=== PATIENT | male | born 1970 | race Caucasian/White ===

== ENCOUNTER 2018-11-25 16:30 | Inpatient (IN) | payer BC ==
[~2018-11-25] VITALS: Ht 175.3 cm; Wt 91.2 kg
[~2018-11-25 16:30] MED LIST: CHANTIX1 EACH PO; ZESTRIL10 MG PO
[2018-11-25 16:46] VITALS: BP 187/114
[2018-11-25 17:03] LABS: ABSOLUTE BASOPHILS 0.1 thou/uL (0.0-0.2); ABSOLUTE EOSINOPHILS 0.1 thou/uL (0.0-0.7); ABSOLUTE LYMPHOCYTES 2.6 thou/uL (0.8-5.3); ABSOLUTE MONOCYTES 1.7 thou/uL (0.0-1.2); ABSOLUTE NEUTROPHILS 9.7 thou/uL (1.6-8.1); BASOPHILS 0.9 %; EOSINOPHILS 0.8 %; HEMATOCRIT 46.6 % (42.0-52.0); HEMOGLOBIN 16.1 gm/dL (14.0-18.0); LYMPHOCYTES 18.5 %; MCH 33.5 pg (26.0-34.0); MCHC 34.6 g/dL (28.0-37.0); MCV 96.7 fL (80.0-100.0); MPV 7.3 fl. (7.2-11.1); NUCLEATED RBCS 0 /100WBC; PLATELET COUNT* 246 thou/uL (150-400); POLYS 67.8 %; RBC 4.82 mil/uL (4.50-6.00); RDW-CV 13.5 % (10.5-14.5); WBC 14.3 thou/uL (4.0-11.0)
[2018-11-25 17:18] LABS: CALCIUM 9.3 mg/dL (8.5-10.1); CREATININE 1.4 mg/dL (0.6-1.3); POTASSIUM 3.5 mmol/L (3.5-5.1)
[2018-11-25 17:31] LABS: ALBUMIN 4.2 g/dL (3.4-5.0); TOTAL BILIRUBIN 0.4 mg/dL (<0.1-1.0); TOTAL PROTEIN 8.1 g/dL (6.4-8.2)
[2018-11-25 18:08] LABS: URINE BILIRUBIN NEGATIVE (Negative); URINE BLOOD 2+ (Negative); URINE CLARITY CLEAR; URINE COLOR YELLOW; URINE GLUCOSE-RANDOM NEGATIVE (Negative); URINE KETONES NEGATIVE (Negative); URINE LEUKOCYTES-REFLEX NEGATIVE (Negative); URINE NITRITE-REFLEX NEGATIVE (Negative); URINE PROTEIN NEGATIVE (Negative); URINE SPECIFIC GRAVITY 1.025 (1.005-1.030); URINE UROBILINOGEN 0.2 E.U./dl (0.2-1.0)
[2018-11-25 18:32] LABS: MUCUS None Seen strn/LPF (None Seen); SQUAMOUS 0-3 Few /LPF (0-3)
[2018-11-25 18:33] LABS: BACTERIA-REFLEX None Seen /HPF (None Seen); CASTS None Seen /LPF (None Seen); CRYSTALS None Seen /LPF (None Seen); URINE RBC 3-10 Few /HPF (0-2); URINE WBC-REFLEX None Seen /HPF (0-5)
[2018-11-25 20:33] VITALS: BP 149/98
[2018-11-25 21:00] VITALS: BP 139/79
[2018-11-26 04:13] LABS: MCH 33.6 pg (26.0-34.0); MCHC 34.4 g/dL (28.0-37.0); MCV 97.7 fL (80.0-100.0); MPV 7.9 fl. (7.2-11.1); RBC 4.2 mil/uL (4.50-6.00); RDW-CV 13.5 % (10.5-14.5); WBC 7.7 thou/uL (4.0-11.0)
[2018-11-26 04:34] LABS: CALCIUM 7.8 mg/dL (8.5-10.1); CREATININE 1.6 mg/dL (0.6-1.3); POTASSIUM 3.5 mmol/L (3.5-5.1)
[2018-11-26 04:48] LABS: HEMOGLOBIN 14.1 gm/dL (14.0-18.0)
[2018-11-26 08:00] VITALS: BP 138/78
[2018-11-26 17:37] VITALS: BP 126/75
[2018-11-26 20:45] VITALS: BP 157/87
[2018-11-27 04:21] LABS: CALCIUM 8.5 mg/dL (8.5-10.1); CREATININE 1.1 mg/dL (0.6-1.3); MAGNESIUM 2.4 mg/dL (1.8-2.4); POTASSIUM 4.1 mmol/L (3.5-5.1)
[2018-11-27] MEDS ORDERED: FLOMAX0.4 MG PO (07:45)
[2018-11-27] MEDS ORDERED: LEVSIN0.125 MG PO (07:45)
[2018-11-27] MEDS ORDERED: HYDROCODON-ACE1 EAC7 PO (07:45)
[2018-11-27 08:00] VITALS: BP 150/79
[2018-11-27] MEDS ORDERED: NORCO 5-325 TA1 EACH PO (10:34)
[2018-11-27 10:38] VITALS: BP 157/87
[2018-11-27 11:00] VITALS: BP 157/87
== END 2018-11-27 11:00 | disposition home or self-care (01) | DRG 683 ==
LOC: M.ERS 16:30 → M.3W 18:36 → M.ORTHSURG 18:36 → M.TBA-ER 18:36 → M.3W 21:27 → M.ORTHSURG 11-26 17:56
PROVIDERS: Physician Assistant; ADMIT Internal Medicine
DX: N17.9 Acute kidney failure, unspecified (principal); N20.1 Calculus of ureter; R65.10 Systemic inflammatory response syndrome (SIRS) of non-infectious origin without acute organ dysfunction; I10 Essential (primary) hypertension; N13.5 Crossing vessel and stricture of ureter without hydronephrosis; F17.210 Nicotine dependence, cigarettes, uncomplicated; K57.90 Diverticulosis of intestine, part unspecified, without perforation or abscess without bleeding; Z87.442 Personal history of urinary calculi; Z79.899 Other long term (current) drug therapy